=== PATIENT | male | born 1980 | race Caucasian/White ===

== ENCOUNTER → 2018-08-31 | Outpatient (CLI) | payer OTHER | LOC: FIMAGING 17:45 | PROVIDERS: ATTEND Internal Medicine | DX: F07.81 Postconcussional syndrome (principal); M50.222 Other cervical disc displacement at C5-C6 level; H53.149 Visual discomfort, unspecified ==

== ENCOUNTER → 2018-09-29 | Outpatient (CLI) | payer OTHER | LOC: FIMAGING 09:02 | PROVIDERS: ATTEND Neurological Surgery | DX: M50.322 Other cervical disc degeneration at C5-C6 level (principal); M40.202 Unspecified kyphosis, cervical region ==